=== PATIENT | male | born 1945 | race Caucasian/White ===

== ENCOUNTER → 2017-05-22 | Outpatient (CLI) | payer OTHER ==
[~2017-05-22] MED LIST: REGADENOSON 0.4 MG/5 ML SYRINGE ONE
== END ==
LOC: CFH 11:51
PROVIDERS: ATTEND Family Medicine
DX: R07.9 Chest pain, unspecified (principal)
CPT/HCPCS: 78452; 93017; A9502; J2785

== ENCOUNTER 2019-07-02 14:13 | Emergency (ER) | payer MEDICARE ==
[~2019-07-02] VITALS: Ht 188 cm; Wt 104.8 kg
[2019-07-02 14:27] VITALS: BP 172/92
== END 2019-07-02 16:05 | disposition home or self-care (01) ==
LOC: ED 15:50
DX: H92.02 Otalgia, left ear (principal)
CPT/HCPCS: 99283

== ENCOUNTER 2019-09-10 16:43 | Emergency (ER) | payer MEDICARE ==
[~2019-09-10] VITALS: Ht 188 cm; Wt 104.0 kg
--- NOTE | 2019-09-10 17:55 | NUR ---
LAB AT BEDSIDE
[2019-09-10] MEDS ORDERED: ASPIRIN 81 MG TABLET CHEW PO ONE (18:00)
--- NOTE | 2019-09-10 18:00 | NUR ---
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
[2019-09-10 18:02] LABS: BASOPHILS # (AUTO) 0.04 x10^3/uL (0-0.1); BASOPHILS % (AUTO) 1 % (0-1); EOSINOPHILS # (AUTO) 0.16 x10^3/uL (0-0.4); EOSINOPHILS % (AUTO) 2 % (1-7); LYMPHOCYTES # (AUTO) 2.39 x10^3/uL (1-3.4); LYMPHOCYTES % (AUTO) 31 % (22-44); MD NO; MEAN CORPUSCULAR HGB CONC 33.1 g/dL (33.2-36.2); MEAN CORPUSCULAR VOLUME 90.7 fL (81-97); MEAN PLATELET VOLUME 7.7 fL (7.4-10.4); MONOCYTES % (AUTO) 8 % (2-9); NEUTROPHILS # (AUTO) 4.47 x10^3/uL (1.8-6.8); NEUTROPHILS % (AUTO) 58 % (42-75); PLATELET COUNT 204 x10^3/uL (130-400); RED BLOOD COUNT 4.89 x10^6/uL (4.38-5.82); RED CELL DISTRIBUTION WIDTH 14.8 % (9.4-14.8)
[2019-09-10 18:12] LABS: ANION GAP 5 mmol/L (5-15); CALCIUM 8.8 mg/dL (8.5-10.1); CHLORIDE 104 mmol/L (98-107); CREATININE 0.95 mg/dL (0.7-1.3)
[2019-09-10 18:16] LABS: TROPONIN I < 0.015 ng/mL (0.000-0.045)
[2019-09-10 19:21] VITALS: BP 148/79
== END 2019-09-10 19:22 | disposition home or self-care (01) ==
LOC: ED 19:10
DX: R07.89 Other chest pain (principal); J01.00 Acute maxillary sinusitis, unspecified; J01.10 Acute frontal sinusitis, unspecified; I10 Essential (primary) hypertension; E11.9 Type 2 diabetes mellitus without complications; Z87.891 Personal history of nicotine dependence; E78.00 Pure hypercholesterolemia, unspecified
CPT/HCPCS: 36415; 71045; 80048; 82040; 84484; 85025; 93005; 99285

== ENCOUNTER 2019-09-24 12:08 | Emergency (ER) | payer MEDICARE ==
[~2019-09-24] VITALS: Ht 190.5 cm; Wt 106.7 kg
--- NOTE | 2019-09-24 12:40 | NUR ---
Pt to 35 from lobby
--- NOTE | 2019-09-24 13:13 | NUR ---
C/O CP, SINUS DRAINAGE. WENT TO [facility], EKG "SHOWED BLIPS"; RX FOR AUGMENTIN - PICKED UP BUT NOT STARTED. PT HERE FOR FOLLOW-UP. DENIES COUGH, FEVER. PAIN IN LT AND RT BREAST AREA, MORE LATERAL; RATES 1/10 CURRENTLY. HAS HAD STRESSFUL FAMILY SITUATION LATELY,. SINUS CONGESTION X 1 MONTH; HAS SEEN ENT AND PCP. BREATH-RITE STRIP ON NOSE. IBUPROFEN AT 0700 TODAY.
[2019-09-24 13:23] VITALS: BP 126/67
--- NOTE | 2019-09-24 13:30 | NUR ---
PT AMBULATORY TO & FROM [facility] W/OUT INCIDENT, GAIT STEADY, VOIDED SPECIMEN PROVIDED.
--- NOTE | 2019-09-24 13:33 | NUR ---
NEON SIGN MECHANIC APPLIED
[2019-09-24] MEDS ORDERED: ATOR40TA78 PO (13:38)
[2019-09-24] MEDS ORDERED: FLOVENT (13:38)
[2019-09-24] MEDS ORDERED: DOXY100C15 PO (13:38)
--- NOTE | 2019-09-24 13:38 | NUR ---
DR STILL AT BS
[2019-09-24] MEDS ORDERED: METF500T17 PO (13:44)
[2019-09-24] MEDS ORDERED: VITA200C7 PO (13:44)
[2019-09-24] MEDS ORDERED: ALLO300T PO (13:44)
[2019-09-24] MEDS ORDERED: ZOLPIDEM PO (13:44)
[2019-09-24] MEDS ORDERED: CHOL2000 PO (13:44)
[2019-09-24] MEDS ORDERED: OMEP20CA20 PO (13:44)
[2019-09-24] MEDS ORDERED: NITR0.4T28 PO (13:44)
[2019-09-24] MEDS ORDERED: IRBE1TAB37 PO (13:44)
[2019-09-24] MEDS ORDERED: COLC0.6T37 PO (13:44)
[2019-09-24] MEDS ORDERED: FLUT12AE INH (13:44)
[2019-09-24 14:23] LABS: TROPONIN I < 0.015 ng/mL (0.000-0.045)
--- NOTE | 2019-09-24 14:45 | NUR ---
PT NOT IN ROOM. LOCATED PT DRESSED AND STANDING AT DC AREA.
== END 2019-09-24 14:49 | disposition home or self-care (01) ==
LOC: ED 14:15
DX: R07.2 Precordial pain (principal); R06.02 Shortness of breath; I10 Essential (primary) hypertension; E11.9 Type 2 diabetes mellitus without complications; E78.5 Hyperlipidemia, unspecified; Z87.891 Personal history of nicotine dependence
CPT/HCPCS: 36415; 84484; 93005; 99284

== ENCOUNTER → 2019-10-05 | Outpatient (CLI) | payer MEDICARE ==
[~2019-10-05] MED LIST changes: +ALLO300T PO; +ATOR40TA78 PO; +CHOL2000 PO; +COLC0.6T37 PO; +DOXY100C15 PO; +FLOVENT; +FLUT12AE INH; +IRBE1TAB37 PO; +METF500T17 PO; +NITR0.4T28 PO; +OMEP20CA20 PO; -REGADENOSON 0.4 MG/5 ML SYRINGE ONE; +VITA200C7 PO; +ZOLPIDEM PO
== END | disposition home or self-care (01) ==
LOC: CVU 09:49
PROVIDERS: ATTEND Internal Medicine Cardiovascular Disease
DX: I08.8 Other rheumatic multiple valve diseases (principal)
CPT/HCPCS: 93306

== ENCOUNTER → 2019-11-11 | Outpatient (CLI) | payer MEDICARE ==
[~2019-11-11] MED LIST changes: +REGADENOSON 0.4 MG/5 ML SYRINGE ONE
== END | disposition home or self-care (01) ==
LOC: CFH 07:23
PROVIDERS: ATTEND Nurse Practitioner Family
DX: I25.9 Chronic ischemic heart disease, unspecified (principal); I10 Essential (primary) hypertension
CPT/HCPCS: 78452; 93017; A9502; J2785

== ENCOUNTER 2019-12-09 15:44 | Inpatient (IN) | payer MEDICARE ==
[~2019-12-09] VITALS: Ht 188 cm; Wt 96.5 kg
[~2019-12-09 15:44] MED LIST changes: -REGADENOSON 0.4 MG/5 ML SYRINGE ONE
[2019-12-09] MEDS ORDERED: METO25TA35 PO (16:24)
[2019-12-09 16:45] LABS: BASOPHILS # (AUTO) 0.03 x10^3/uL (0-0.1); BASOPHILS % (AUTO) 1 % (0-1); EOSINOPHILS # (AUTO) 0.21 x10^3/uL (0-0.4); EOSINOPHILS % (AUTO) 3 % (1-7); LYMPHOCYTES # (AUTO) 2.23 x10^3/uL (1-3.4); LYMPHOCYTES % (AUTO) 33 % (22-44); MD NO; MEAN CORPUSCULAR HEMOGLOBIN 30.4 pg (27.5-34.5); MEAN CORPUSCULAR HGB CONC 32.8 g/dL (33.2-36.2); MEAN CORPUSCULAR VOLUME 92.5 fL (81-97); MEAN PLATELET VOLUME 8.3 fL (7.4-10.4); MONOCYTES # (AUTO) 0.53 x10^3/uL (0.2-0.8); MONOCYTES % (AUTO) 8 % (2-9); NEUTROPHILS # (AUTO) 3.84 x10^3/uL (1.8-6.8); NEUTROPHILS % (AUTO) 56 % (42-75); PLATELET COUNT 206 x10^3/uL (130-400); RED CELL DISTRIBUTION WIDTH 14.9 % (9.4-14.8)
[2019-12-09 16:55] LABS: ALBUMIN 4.2 g/dL (3.4-5.0); ANION GAP 6 mmol/L (5-15); CALCIUM 9.2 mg/dL (8.5-10.1); CHLORIDE 104 mmol/L (98-107); CREATININE 0.92 mg/dL (0.7-1.3); PROTHROMBIN TIME 10.6 Seconds (9.6-11.5)
[2019-12-09 16:59] LABS: TROPONIN I < 0.015 ng/mL (0.000-0.045)
[2019-12-09] MEDS ORDERED: ZOLPIDEM 10MG TABLET HOMEMEDPO PRN (17:30)
[2019-12-09] MEDS ORDERED: ZOLPIDEM 10 MG PO PRN (17:30)
--- NOTE | 2019-12-09 18:04 | NUR ---
REPORT TO MOE KEVIN FOR ROOM 521
[2019-12-09 18:38] VITALS: BP 122/74
[2019-12-09] MEDS: ASPIRIN 81 MG TABLET CHEW PO SCH (20:40)
[2019-12-09] MEDS ORDERED: ATORVASTATIN 40 MG TABLET HOMEMEDPO SCH (21:00)
[2019-12-09] MEDS ORDERED: metFORMIN XR 500 MG TAB.ER.24H HOMEMEDPO SCH (21:00)
[2019-12-09] MEDS ORDERED: VITAMIN E 400 UNITS CAPSULE PO SCH (21:00)
[2019-12-09] MEDS ORDERED: CHOLECALCIFEROL 400 UNITS TABLET PO SCH (21:00)
[2019-12-10 03:57] VITALS: BP 121/73
[2019-12-10 05:39] LABS: TROPONIN I < 0.015 ng/mL (0.000-0.045)
[2019-12-10] MEDS ORDERED: SODIUM CHLORIDE 0.9% 1,000 ML IV SCH ×2 (06:00→09:51)
[2019-12-10] MEDS: ASPIRIN 81 MG TABLET CHEW PO SCH (06:11)
[2019-12-10] MEDS ORDERED: LIDOCAINE-MPF 1%, 5ML ONE (08:37)
[2019-12-10] MEDS ORDERED: HEPARIN 1,000 UNITS/ML, 10ML ONE (08:37)
[2019-12-10] MEDS ORDERED: VERAPAMIL 2.5 MG/ML, 2ML ONE (08:37)
[2019-12-10] MEDS ORDERED: MIDAZOLAM 1 MG/ML, 2ML ONE (08:37)
[2019-12-10] MEDS ORDERED: BIVALIRUDIN 250 MG ONE (08:37)
[2019-12-10] MEDS ORDERED: FENTANYL PF 100 MCG/2ML ONE (08:37)
[2019-12-10 08:45] VITALS: BP 122/77
[2019-12-10] MEDS ORDERED: IRBESARTAN HOMEMEDPO SCH (09:00)
[2019-12-10] MEDS ORDERED: ALLOPURINOL 300 MG TABLET HOMEMEDPO SCH (09:00)
[2019-12-10] MEDS ORDERED: OMEPRAZOLE 20 MG CAPSULE.DR HOMEMEDPO SCH (09:00)
[2019-12-10] MEDS ORDERED: HYDROCHLOROTHIAZIDE HOMEMEDPO SCH (09:00)
[2019-12-10] MEDS ORDERED: COLCHICINE 0.6 MG CAPSULE PO SCH (09:00)
[2019-12-10] MEDS ORDERED: TEMPLATE NON-FORMULARY MED. (Fluticasone Propionate (Flovent Hfa 110 Mcg/Inh) 1 PUFF) HOMEINH SCH (09:00)
[2019-12-10] MEDS ORDERED: [UNRECOGNIZED DRUG - OTHER] HOMEMEDPO SCH (09:00)
[2019-12-10] MEDS ORDERED: METOPROLOL SUCCINATE 25 MG TAB.ER.24H HOMEMEDPO SCH (09:00)
== END 2019-12-10 14:26 | disposition home or self-care (01) | DRG 287 ==
LOC: ED 17:10 → EDIP 17:11 → ED 17:43 → 5SO 18:26
PROVIDERS: ADMIT Internal Medicine; ATTEND Hospitalist
PROC: 4A023N7 Measurement of Cardiac Sampling and Pressure, Left Heart, Percutaneous Approach (ICD-10-PCS; principal; 2019-12-10)
PROC: B2111ZZ Fluoroscopy of Multiple Coronary Arteries using Low Osmolar Contrast (ICD-10-PCS; 2019-12-10)
PROC: B2151ZZ Fluoroscopy of Left Heart using Low Osmolar Contrast (ICD-10-PCS; 2019-12-10)
DX: I20.0 Unstable angina (principal); E11.9 Type 2 diabetes mellitus without complications; I10 Essential (primary) hypertension; K21.9 Gastro-esophageal reflux disease without esophagitis; M10.9 Gout, unspecified; E78.5 Hyperlipidemia, unspecified; Z82.3 Family history of stroke; Z87.891 Personal history of nicotine dependence
CPT/HCPCS: 36415; 71045; 80048; 82040; 84484; 85025; 85610; 85730; 93005; 93458; 99156; 99285; C1769; C1894; G0378; J0583; J1644; J2250; J3010; J7030; Q9967

== ENCOUNTER → 2020-10-11 | Outpatient (CLI) | payer MEDICARE ==
[~2020-10-11] MED LIST changes: -CHOL2000 PO; +CHOL20008 PO; +METO25TA35 PO
== END | disposition home or self-care (01) ==
LOC: STAR 09:53
PROVIDERS: ATTEND Anesthesiology
DX: Z01.818 Encounter for other preprocedural examination (principal); Z01.812 Encounter for preprocedural laboratory examination; Z01.89 Encounter for other specified special examinations; R79.1 Abnormal coagulation profile; R94.31 Abnormal electrocardiogram [ECG] [EKG]
CPT/HCPCS: 93005